=== PATIENT | female | born 2000 | race American Indian/Alaskan Native ===

== ENCOUNTER 2023-09-08 14:22 | Outpatient (REF) | payer OTHER, SELFPAY ==
--- NOTE | ~2023-09-08 | MR_ITS ---
MR LUMBAR SPINE WITHOUT CONTRAST CLINICAL INFORMATION: Low back pain. COMPARISON: None available. TECHNIQUE: MRI of the lumbar spine was obtained using routine sequences without contrast. FINDINGS: There are 5 nonrib-bearing lumbar-type vertebral bodies. There is moderate disc volume loss at L5-S1 and there is mild disc volume loss at L4-L5 with disc desiccation at both of these levels. The remaining disc volumes are preserved and the remaining discs remain well-hydrated. Vertebral body heights are maintained. There is no bone marrow edema. There are no acute fractures. The conus terminates at the T12-L1 level. There are no significant extraspinal soft tissue findings. The L1-L2 and the L2-L3 disc contours are normal. There is no central canal stenosis and there is no foraminal stenosis at these levels L3-L4: There is a small annular disc bulge and there is mild bilateral facet arthropathy. No central canal stenosis and no foraminal stenosis. L4-L5: There is a diffuse annular disc bulge with a superimposed broad-based left paracentral disc protrusion that compresses the traversing left greater than right L5 nerve roots within the subarticular zones and that results in moderate central canal stenosis. No significant foraminal stenosis. L5-S1: There is a broad-based left paracentral disc protrusion that compresses the traversing left greater than right S1 nerve roots within the subarticular zones and that results in moderate to severe central canal stenosis. A left lateral disc osteophyte protrusion contacts the extraforaminal left L5 nerve root. There is mild foraminal encroachment bilaterally. MR/MR lumbar spine wo con IMPRESSION: * At L4-L5, a broad-based left paracentral disc protrusion compresses the traversing left greater than right L5 nerve roots within the subarticular zones and results in moderate central canal stenosis. * At L5-S1, a broad-based left paracentral disc protrusion compresses the traversing left greater than right S1 nerve roots within the subarticular zones and results in moderate to severe central canal stenosis. A left lateral disc osteophyte protrusion contacts the extraforaminal left L5 nerve root.
== END 2023-09-08 14:23 | disposition home or self-care (01) ==
LOC: HO.MRI 14:22
PROVIDERS: PCP Student in an Organized Health Care Education/Training Program; Visit Provider Student in an Organized Health Care Education/Training Program
DX: M54.50 Low back pain, unspecified (principal)
CPT/HCPCS: 72148